=== PATIENT | male | born 2000 | race Two or more races ===

== ENCOUNTER 2022-02-06 13:27 | Emergency (ER) | payer OTHER ==
[2022-02-06] MEDS ORDERED: Acetaminophen 325 MG Tab PO ONE (14:41)
[2022-02-06] MEDS ORDERED: Ondansetron 4 MG Tab.DIS PO ONE (14:41)
[2022-02-07] MEDS ORDERED: Acetaminophen 325 MG Tab PO STA (03:18)
== END 2022-02-07 07:43 | disposition home or self-care (01) ==
LOC: JD.ED 13:27
DX: S06.5X1A Traumatic subdural hemorrhage with loss of consciousness of 30 minutes or less, initial encounter (principal); V53.5XXA Driver of pick-up truck or van injured in collision with car, pick-up truck or van in traffic accident, initial encounter; Y92.410 Unspecified street and highway as the place of occurrence of the external cause
CPT/HCPCS: 36415; 70450; 70450-26; 85025; 99284; A9270-GY